=== PATIENT | female | born 1985 | race Caucasian/White ===

== ENCOUNTER 2025-05-02 09:27 | Emergency (ER) | payer MEDICAID ==
[~2025-05-02] VITALS: Ht 170.2 cm; Wt 71.3 kg
--- NOTE | 2025-05-02 09:44 | Physician Documentation ---
History of Present Illness Chief Complaint: Nausea Stated Complaint: MULTIPLE MED COMPLAINTS Time Seen by MD: 09:43 Primary Medical Doctor: none HPI THIS 40-YEAR-OLD FEMALE PRESENTS TO THE ED WITH A COMPLAINT OF 4 WEEKS OF VOMITING PARENT DENIES ANY ABDOMINAL PAIN DENIES ANY FEVERS OR CHILLS HOWEVER SHE COMPLAINS OF A GROWTH ON HER LEFT SHOULDER X1 YEAR. SHE STATES SHE WAS SEEN AT [facility] A WEEK AGO HAD LAB WORK DONE NEVER RECEIVED THE RESULTS. HE HAS NOT BEEN SEEN FOR HER GROWTH BEFORE. Day of Onset: May 02, 2025 Medication Reconciliation Allergies: Uncoded Allergies: LIDOCAINE PATCH (Allergy, Unknown, 05/02/25) Scheduled PRN ONDANSETRON ODT 4mg tablet (Ondansetron Odt), 1 TAB PO Q6H PRN PRN for nausea/vomiting Past Medical History Past Medical History: No Pertinent History Past Surgical History: Alcohol Use: None Lives with: Family Lives In: Home Review of Systems All Other Systems at this time: Reviewed and Negative ROS As stated above in the HPI, otherwise all systems are reviewed and negative. Physical Exam Vital Signs: Temperature: 98.1, Source: Oral, Heart Rate: 93, Respiratory Rate: 16, BP: 140/80, Pulse Oximetry: 100, Weight: 71.300 Oxygen Flow Rate: 0 Physical Exam General: Alert, no apparent distress. HEENT: PERRL, EOMI, no injection, moist mucous membranes. Neck: Full range of motion. Left-sided cervical lymphadenopathy Extremities: Normal range of motion, large purple tissue growth proximally 4 cm x 5 cm by 30 cm on left shoulder Neurologic: Oriented x4. Psychiatric: Normal mood and affect. Skin: Normal color, warm and dry. No edema, no ecchymosis. Progress Results/Orders Results/Orders Orders - DARRIUS MONIQUE 3D ARTIST Cbc/Diff (05/02/25 09:34) Culture Blood (05/02/25 09:34) Urinalysis, Cult If Indicated (05/02/25:34) Chest,Single View (05/02/25 09:34) Monitor (05/02/25 09:34) Saline Lock (05/02/25 09:34) Procalcitonin (05/02/25 09:34) BMP (05/02/25 09:34) Lacticsepsis (05/02/25 09:34) CEA (05/02/25 09:34) Vital Signs 05/02/25 09:28 Temp 98.1 Pulse 93 Resp 16 B/P (MAP) 140/80 Pulse Ox 100 O2 Flow Rate 0 Medical Decision Making Findings Patient's presentation is overall hemodynamically stable and her labs are mostly reassuring. I did replace her potassium. However,I am mostly concerned about the suspected large melanoma which has developed on her left shoulder. she does not have a primary care doctor, however I expressed to her that she needs to follow up with [facility] pain a referral to Oncology and/or Dermatology to have this growth removed and further evaluate for metastasis cancer Differential Dx:Considerations: Include: AAA, -Complete, - Incomplete, -Inevitable, -Missed, -Threatened, Abruptio placentae, Angina/NC, Aortic dissection, Appendicitis, Bowel obstruction, Cholangitis, Cholelithasis, Constipation, Diverticular disease, Esophageal rupture, Esophagitis, Gastritis/PUD, Gastroenteritis, GI hemorrhage, Hernia, Hepatitis, Inflammatory BD, Ischemic bowel, Ovarian cyst/torsion, Pancreatitis, PID, Porphyria, Trauma, intraabdominal, Urinary obstruction, Urinary tract infection, Urolithiasis, Other Departure Disposition: 01 HOME / SELF CARE / HOMELESS Impression: Primary Impression: Hypokalemia Additional Impression: Skin cancer (melanoma) Additional Instructions: Important that you go to [facility] and establish there in order to get a referral to go see an oncologist and/or lens shaper grinder to have a growth on your left shoulder removed. You may require further imaging to confirm that the tissue growth is only localized Referrals: NO PRIMARY CARE PROVIDER (PCP) Prescriptions ONDANSETRON ODT 4mg tablet (ONDANSETRON ODT) 4 Mg Tab.rapdis 1 TAB PO Q6H PRN PRN for nausea/vomiting for 4 Days, #16 TAB 0 Refills Prov: DARRIUS MONIQUE NP 05/02/25 Education Educated: Patient Educated regarding: diagnosis Signature Scribe Signature: tg Attestation: The note accurately reflects work and decisions made by me.Darrius Cortez NP 05/02/25 17:38 DARRIUS MONIQUE NP May 02, 2025 09:44
[2025-05-02 09:53] LABS: BILIRUBIN,URINE MODERATE (Neg); CLARITY,URINE CLOUDY (Clear); COLOR,URINE YELLOW (Yellow); GLUCOSE, URINE NEGATIVE (Neg); KETONES,URINE 15 mg/dl (Neg); LEUKOCYTE ESTERASE ,URINE NEGATIVE (Neg); NITRITES, URINE NEGATIVE (Neg); OCCULT BLOOD,URINE NEGATIVE (Neg); PH,URINE 6.5 (4.8-8.0); PROTEIN,URINE 30 mg/dl (Neg)
--- NOTE | 2025-05-02 09:57 | RADIOLOGY REPORT ---
EXAM: DI CHEST,SINGLE VIEW HISTORY: sepsis alert COMPARISON: None TECHNIQUE: PA upright view of the chest was performed. FINDINGS: No pneumothorax, consolidative infiltrates, or pulmonary edema. The heart is not enlarged. There is m ild upper thoracic dextroscoliosis. IMPRESSION: No acute intrathoracic process.
[2025-05-02 10:04] LABS: UA COLLECTION TYPE CLN CATCH MIDSTREAM
[2025-05-02 10:16] LABS: BACTERIA,URINE 2+ /HPF (Neg); RBC,URINE NONE SEEN /HPF (0-2); SQUAMOUS EPITHELIAL CELL,UR MANY /LPF (FEW); WBC,URINE 0-4 /HPF (0-4)
[2025-05-02 10:23] LABS: BASOPHILS # (AUTO) 0.1 X10'3 (0-0.2); BASOPHILS % (AUTO) 0.9 % (0-1); EOSINOPHILS # (AUTO) 0.1 X10'3 (0-0.9); EOSINOPHILS % (AUTO) 0.9 % (0-6); HEMATOCRIT 37.8 % (35.0-45.0); HEMOGLOBIN 12.3 g/dl (12.0-16.0); LYMPHOCYTES # (AUTO) 1.3 X10'3 (1.1-4.8); LYMPHOCYTES % (AUTO) 16.6 % (21-51); MEAN CORPUSCULAR HGB CONC 32.4 g/dL (33.0-36.5); MEAN PLATELET VOLUME 7.8 FL (7.4-10.4); MONOCYTES # (AUTO) 0.5 X10'3 (0-0.9); MONOCYTES % (AUTO) 6.3 % (2-12); NEUTROPHILS # (AUTO) 5.8 X10'3 (1.8-7.7); NEUTROPHILS % (AUTO) 75.3 % (42-75); PLATELET COUNT 434 X10'3 (140-440); RED BLOOD COUNT 5.11 X10'6 (4.20-5.60); RED CELL DISTRIBUTION WIDTH 15.7 % (11.5-14.5); WHITE BLOOD COUNT 7.7 X10'3 (4.5-11.0)
[2025-05-02 10:33] LABS: ALBUMIN 3.5 G/DL (3.4-5.0); ANION GAP 8 (8-16); BLOOD UREA NITROGEN 9 MG/DL (7-18); BUN/CREATININE RATIO 10.6 (10.0-20.0); CALCIUM 9.8 MG/DL (8.5-10.1); CHLORIDE 101 MMOL/L (99-107); CREATININE 0.85 MG/DL (0.40-0.90); GLUCOSE 114 MG/DL (70-104); SODIUM 143 MMOL/L (135-145); TOTAL CARBON DIOXIDE 33.6 MMOL/L (24-32); eCRCL 85 ML/MIN; eGFR 74 ML/MIN
[2025-05-02 10:45] LABS: POTASSIUM 2.8 MMOL/L (3.5-5.1)
[2025-05-02] MEDS ORDERED: ONDA-243 PO (11:09)
[2025-05-02] MEDS: potassium Cl 20 mEq SR tablet PO STA (11:26)
[2025-05-02 11:30] VITALS: BP 136/78; PULSE 78; RESP 16; TEMP 98.1; O2SAT 99
== END 2025-05-02 11:34 | disposition home or self-care (01) ==
LOC: ER 09:28
DX: E87.6 Hypokalemia (principal); C43.9 Malignant melanoma of skin, unspecified
CPT/HCPCS: 36415; 71045; 80048; 81001; 83605; 84145; 85025; 87040; 99284